=== PATIENT | male | born 1975 | race Caucasian/White ===

== ENCOUNTER 2018-05-30 22:32 | Emergency (ER) | payer SELFPAY ==
[~2018-05-30] VITALS: Ht 185.4 cm; Wt 127.0 kg
[2018-05-30 23:52] LABS: Basophils # (auto) 0.1 uL; Basophils % (auto) 0.5 % (0.0-2.0); Eosinophils # (auto) 0.1 uL; Eosinophils % (auto) 0.5 % (0.0-7.0); Hematocrit 46.7 % (41.0-53.0); Hemoglobin 15.8 g/dL (13.5-17.5); Lymphocytes # (auto) 1.3 uL; Lymphocytes % (auto) 9.7 % (10.0-50.0); Mean Corpuscular Hemoglobin 30.3 pg (28.0-32.0); Mean Corpuscular Hgb Conc. 33.8 g/dL (32.0-36.0); Mean Corpuscular Volume 89.8 fL (80.0-100.0); Monocytes # (auto) 0.8 uL; Monocytes % (auto) 5.6 % (0.0-12.0); Neutrophils # (auto) 11.6 uL; Neutrophils % (auto) 83.7 % (37.0-80.0); Platelet Count (auto) 209 10^3/uL (140-450); White Blood Cell 13.8 10^3/uL (4.4-10.8)
[2018-05-31 00:04] LABS: INR 0.99 (0.9-1.15); Partial Thromboplastin Time 24.3 sec (23.78-33.04); Prothrombin Time 10.6 sec (9.27-12.13)
[2018-05-31 00:09] LABS: Alanine Aminotransferase 136 U/L (16-61); Albumin 4.1 g/dL (3.4-5.0); Anion Gap 7 (5-15); Aspartate Aminotransferase 83 U/L (15-37); Blood Urea Nitrogen 16 mg/dL (7-18); Calcium 8.5 mg/dL (8.5-10.1); Carbon Dioxide 24 mmol/L (21-32); Chloride 107 mmol/L (98-107); Glucose 114 mg/dL (74-106); Potassium 3.9 mmol/L (3.5-5.1); Sodium 138 mmol/L (136-145)
[2018-05-31 00:13] LABS: Alkaline Phosphatase 51 U/L (45-117); Bilirubin, Total 1.6 mg/dL (0.2-1.0); Creatine Kinase IFCC 574 U/L (39-308); GFR African American 77 mL/min; GFR Non-African American 63 mL/min; Total Protein 7.1 g/dL (6.4-8.2)
[2018-05-31] MEDS ORDERED: ONDANSETRON HCL 4 MG/2 ML VIAL IV ONE (00:45)
[2018-05-31] MEDS ORDERED: MORPHINE SULFATE 4 MG/ML SYR/VIAL IV ONE (00:45)
[2018-05-31] MEDS ORDERED: SODIUM CHLORIDE 0.9% 1,000 ML IV ONE (03:00)
[2018-05-31 05:00] VITALS: BP 121/73
== END 2018-05-31 05:45 | disposition home or self-care (01) ==
LOC: EDBD 22:32 → ER 22:40 → EDBD 22:40 → ER 05-31 05:42
DX: S06.0X9A Concussion with loss of consciousness of unspecified duration, initial encounter (principal); S16.1XXA Strain of muscle, fascia and tendon at neck level, initial encounter; S20.219A Contusion of unspecified front wall of thorax, initial encounter; V49.49XA Driver injured in collision with other motor vehicles in traffic accident, initial encounter; Y93.89 Activity, other specified; Y99.8 Other external cause status; Y92.410 Unspecified street and highway as the place of occurrence of the external cause
CPT/HCPCS: 36415; 70450; 71250; 72125; 73030; 73562; 73610; 74176; 80053; 82550; 84484; 85025; 85610; 85730; 96374; 96375; 99284; J2270; J2405